=== PATIENT | female | born 1960 | race Caucasian/White ===

== ENCOUNTER 2017-03-15 14:46 | Emergency (ER) | payer BC ==
[2017-03-15 14:57] VITALS: BP 131/69
--- NOTE | 2017-03-15 15:54 | UC ---
Upper Extremity HPI - HPI Summary HPI Summary: Right shoulder pain began 3 days ago---travels up and down arm pain in the bicep tendon - History of Current Complaint Chief Complaint: UCUpperExtremity Stated Complaint: ARM PAIN Time Seen by Provider: 03/15/17 15:47 Hx Obtained From: Patient ?: No Onset/Duration: Gradual Onset, Lasting Days - 3, Still Present, Worse Since - every day Severity Initially: Moderate Severity Currently: Moderate Pain Intensity: 9 Pain Scale Used: 0-10 Numeric Location Of Pain: Is Discrete @ - proximal bicep Character: Aching, Stiffness Aggravating Factor(s): Movement, Lifting Alleviating Factor(s): Nothing Associated Signs And Symptoms: Positive: Negative Related History: Dominant Hand Right - Allergies/Home Medications Allergies/Adverse Reactions: Allergies Allergy/AdvReac Type Severity Reaction Status Date / Time No Known Allergies Allergy Verified 03/15/17 15:35 Home Medications: Home Medications Acetaminophen TAB* [Tylenol TAB*] 500 mg PO QID PRN 03/15/17 [History Confirmed 03/15/17] PMH/Surg Hx/FS Hx/Imm Hx Previously Healthy: Yes - Surgical History Surgical History: Yes Surgery Procedure, Year, and Place: TUBAL 1991 - Family History Known Family History: Positive: None - Social History Occupation: Employed Part-time, Retired Lives: With Family Alcohol Use: None Substance Use Type: None Smoking Status (MU): Never Smoked Tobacco Review of Systems Constitutional: Negative Skin: Negative Eyes: Negative ENT: Negative Respiratory: Negative Cardiovascular: Negative Gastrointestinal: Negative Genitourinary: Negative Motor: Negative, Decreased ROM - right shoulder Neurovascular: Negative Musculoskeletal: Negative, Arthralgia - right shoulder Neurological: Negative Psychological: Negative All Other Systems Reviewed And Are Negative: Yes Physical Exam Triage Information Reviewed: Yes Appearance: Well-Appearing, Well-Nourished, Pain Distress Vital Signs: Initial Vital Signs Temp 98.7 F 03/15/17 14:52 Pulse 70 03/15/17 14:52 Resp 16 03/15/17 14:52 BP 131/69 03/15/17 14:52 Pulse Ox 100 03/15/17 14:52 Vital Signs Reviewed: Yes Eye Exam: Normal Eyes: Positive: Conjunctiva Clear ENT Exam: Normal ENT: Positive: Normal ENT inspection, Hearing grossly normal. Negative: Nasal congestion, Nasal drainage, Trismus, Muffled/hoarse voice Dental Exam: Normal Neck exam: Normal Neck: Positive: Supple, Nontender Respiratory Exam: Normal Respiratory: Positive: Chest non-tender, No respiratory distress, No accessory muscle use Cardiovascular Exam: Normal Cardiovascular: Positive: RRR, Pulses Normal, Brisk Capillary Refill Musculoskeletal Exam: Normal Musculoskeletal: Positive: No Edema, Strength Limited @, ROM Limited @ Neurological Exam: Normal Neurological: Positive: Alert, Muscle Tone Normal Psychological Exam: Normal Skin Exam: Normal Upper Extremity Course/Dx - Course Course Of Treatment: antiinflammatories, pain med, rice, sling, follow with ortho - Differential Dx/Diagnosis Differential Diagnosis/HQI/PQRI: Bursitis, Fracture (Closed), Strain, Sprain Provider Diagnoses: Proximal Bicep tendonitis Discharge - Discharge Plan Condition: Stable Disposition: HOME Prescriptions: HYDROcodone/ACETAMIN 5-325 MG* [[place] 5-325 TAB*] 1 tab PO Q6H PRN #16 tab MDD 4 PRN Reason: pain Ibuprofen TAB* [Motrin TAB* 600 MG] 600 mg PO Q6H PRN #40 tab PRN Reason: pain Patient Education Materials: Tendinitis (ED), Shoulder Pain (ED) Referrals: Monet Lopez MD [Medical Doctor] - 3 Days ()
== END 2017-03-15 16:16 | disposition home or self-care (01) ==
LOC: UCEAST 14:46
DX: M75.21 Bicipital tendinitis, right shoulder (principal)
CPT/HCPCS: 99213; G0463